=== PATIENT | male | born 1940 | race Caucasian/White ===

== ENCOUNTER 2020-05-02 12:24 | Outpatient (CLI) | payer OTHER ==
[~2020-05-02 12:24] MED LIST: CALC-1205 PO; FINA5TAB PO; FLO0.4C PO; LACT1CAP73 PO; LOVA20TA2 PO; PANT40TA39 PO; PRENATAL ONE T1 EACH PO; VITA1CAP62 PO; ZOV200C PO; [UNRECOGNIZED DRUG - CODE] PO
[2020-05-02 13:25] LABS: HEMATOCRIT 27.7 % (42.0-52.0); MEAN CORPUSCULAR HEMOGLOBIN 26.5 PG (27.0-31.0); MEAN CORPUSCULAR HGB CONC 32.4 g/dL (33.0-36.5); MEAN CORPUSCULAR VOLUME 81.9 FL (78-98); PLATELET COUNT 206 X10'3 (140-440); RED BLOOD COUNT 3.38 X10'6 (4.70-6.10); RED CELL DISTRIBUTION WIDTH 17.6 % (11.5-14.5); WHITE BLOOD COUNT 4.8 X10'3 (4.5-11.0)
[2020-05-02 13:43] LABS: ALANINE AMINOTRANSFERASE 22 U/L (12-78); ALBUMIN 2.3 G/DL (3.4-5.0); ALBUMIN/GLOBULIN RATIO 0.7 (1.1-1.5); ALKALINE PHOSPHATASE 163 IU/L (46-116); ANION GAP 7 (8-16); ASPARTATE AMINO TRANSFERASE 23 U/L (10-37); BILIRUBIN,TOTAL 0.4 MG/DL (0.1-1.0); BLOOD UREA NITROGEN 48 MG/DL (7-18); CALCIUM 8.4 MG/DL (8.5-10.1); CHLORIDE 104 MMOL/L (99-107); GLUCOSE 82 MG/DL (70-104); PHOSPHORUS 3.9 MG/DL (2.3-4.5); SODIUM 140 MMOL/L (135-145); TOTAL CARBON DIOXIDE 29.2 MMOL/L (24-32); TOTAL PROTEIN 5.8 G/DL (6.4-8.2); eGFR 12 ML/MIN
[2020-05-04 13:14] LABS: HBSAG SCREEN Negative (Negative)
== END 2020-05-02 23:59 | disposition home or self-care (01) ==
LOC: LAB 12:24
DX: E78.5 Hyperlipidemia, unspecified (principal); Z99.2 Dependence on renal dialysis
CPT/HCPCS: 36415; 80053; 84100; 85027; 87340

== ENCOUNTER 2020-05-08 09:52 | Emergency (ER) | payer OTHER ==
[~2020-05-08] VITALS: Ht 157.5 cm; Wt 56.0 kg
[2020-05-08 10:01] VITALS: BP 154/73
--- NOTE | 2020-05-08 10:14 | NUR ---
RECEIVED A CALL FROM [facility]. PT IS SUPPOSED TO GO TO OUTPT FOR LAB DRAW AND THEN RETURN TO [facility] FOR TREATEMTHN. PT'S INFORMED THAT THERE ARE NO OUTPT LAB DRAWS ON THE HOLIDAY BUT PT CAN NOT COME IN TOMORROW SCHEDULED. PT EXCORTED TO OUTPT LAB, BASSEM IN LAB NOTIFIED AND PT IS HAVE LAB DRAWN TODAY. 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
[2020-05-08 10:46] LABS: ALBUMIN 2.4 G/DL (3.4-5.0); ANION GAP 9 (8-16); BLOOD UREA NITROGEN 71 MG/DL (7-18); BUN/CREATININE RATIO 11.2 (5.4-32.0); CHLORIDE 109 MMOL/L (99-107); CREATININE 6.32 MG/DL (0.60-1.10); GLUCOSE 98 MG/DL (70-104); PHOSPHORUS 4.3 MG/DL (2.3-4.5); POTASSIUM 5.6 MMOL/L (3.5-5.1); SODIUM 142 MMOL/L (135-145); TOTAL CARBON DIOXIDE 23.7 MMOL/L (24-32); eGFR 9 ML/MIN
== END 2020-05-08 10:26 | disposition home or self-care (01) ==
LOC: ER 09:55
DX: Z99.2 Dependence on renal dialysis (principal); Z53.21 Procedure and treatment not carried out due to patient leaving prior to being seen by health care provider
CPT/HCPCS: 36415; 80069

== ENCOUNTER 2020-08-23 08:57 | Day surgery (SDC) | payer OTHER ==
[2020-08-23] VITALS (9 sets, daily range): BP systolic 127–162; BP diastolic 61–83
[~2020-08-23] VITALS: Ht 157.5 cm; Wt 59.4 kg
[2020-08-23] MEDS ORDERED: LIDOcaine 1%/PF 5ML 10 MG/ML VIAL ONE (10:13)
[2020-08-23 10:16] LABS: ALBUMIN 2.9 G/DL (3.4-5.0); ANION GAP 14 (8-16); BLOOD UREA NITROGEN 86 MG/DL (7-18); BUN/CREATININE RATIO 12.5 (5.4-32.0); CALCIUM 8.6 MG/DL (8.5-10.1); CHLORIDE 106 MMOL/L (99-107); CREATININE 6.89 MG/DL (0.60-1.10); GLUCOSE 87 MG/DL (70-104); POTASSIUM 4.5 MMOL/L (3.5-5.1); SODIUM 142 MMOL/L (135-145); TOTAL CARBON DIOXIDE 21.7 MMOL/L (24-32); eGFR 8 ML/MIN
[2020-08-23] MEDS ORDERED: AMLO10TA13 PO (10:18)
[2020-08-23] MEDS ORDERED: midazolam 2 mg/2 ml injection ONE (11:04)
[2020-08-23] MEDS ORDERED: fentaNYL/PF 50MCG/1 ML 2ML syringe ONE (11:04)
[2020-08-23] MEDS ORDERED: heparin 1,000unit/ml 10ml vial 10 ML ONE (11:04)
[2020-08-23] MEDS ORDERED: acetaminophen 325mg tablet PO ONE (13:20)
== END 2020-08-23 14:25 | disposition home or self-care (01) ==
LOC: SSTAY O 08:57
PROVIDERS: ATTEND Radiology Vascular & Interventional Radiology
DX: N18.9 Chronic kidney disease, unspecified (principal); Z20.828 Contact with and (suspected) exposure to other viral communicable diseases; Z88.5 Allergy status to narcotic agent; Z88.1 Allergy status to other antibiotic agents; Z79.899 Other long term (current) drug therapy
CPT/HCPCS: 36415; 36558; 76937; 77001; 80048; 87635; 99152; C1750; C1769; C1894; C9803; J1644; J2250; J3010; 99153; A9270